=== PATIENT | male | born 1985 | race Two or more races ===

== ENCOUNTER 2018-11-27 18:38 | Emergency (ER) | payer SELFPAY ==
[~2018-11-27] VITALS: Ht 180.3 cm; Wt 70.0 kg
[2018-11-27 19:00] VITALS: BP 116/76
== END 2018-11-27 19:26 | disposition left against medical advice (07) ==
LOC: ER 18:38
DX: F20.9 Schizophrenia, unspecified (principal); Z53.21 Procedure and treatment not carried out due to patient leaving prior to being seen by health care provider